=== PATIENT | male | born 1955 | race African-American/Black ===

== ENCOUNTER 2017-04-11 10:40 | Day surgery (SDC) | payer OTHER ==
[2017-04-09 12:39] VITALS: BMI 24.4
[2017-04-11] MEDS ORDERED: PROPOFOL 20 ML ONE ×2 (11:05→11:25)
[2017-04-11 12:47] VITALS: TEMP 98
[2017-04-11 13:05] VITALS: BP 119/64; PULSE 67
--- NOTE | 2017-04-12 15:29 | PATH ---
Surgical Pathology Report Patient Name: SAVANAH GARYSON [facility]. Rec. #: [id number] /Age/Gender: 1955 (Age: 61) / M Account: [id number] Location: Taken: 04/11/2017 Received: 04/11/2017 Reported: 04/12/2017 Physicians: Maria D Tejeda M.D. Specimen(s) Received TRANSVERSE COLON Clinical History Preoperative diagnosis: Anemia Postoperative diagnosis: Polyp Final Diagnosis TRANSVERSE COLON, BIOPSY: HYPERPLASTIC POLYP. Electronically Signed Cecilia Martinez M.D. Gross Description Received in formalin, labeled "transverse colon" are 2 flores, irregular portions of soft tissue measuring 0.3 and 0.5 cm. in greatest dimension. The specimens are submitted in toto in one cassette. 04/11/201704/11/2017
== END 2017-04-11 13:05 ==
LOC: FASU-ENDO 10:40
PROVIDERS: ATTEND Internal Medicine Gastroenterology
PROC: 0DBL8ZX Excision of Transverse Colon, Via Natural or Artificial Opening Endoscopic, Diagnostic (ICD-10-PCS; principal; 2017-04-11 11:54)
DX: D64.9 Anemia, unspecified (principal); K63.5 Polyp of colon; K64.1 Second degree hemorrhoids
CPT/HCPCS: 82962; 88305-TC

== ENCOUNTER 2017-12-12 12:01 | Day surgery (SDC) | payer OTHER ==
[2017-12-12 12:38] VITALS: BMI 26.2
[2017-12-12 15:36] VITALS: BP 110/65; PULSE 68; TEMP 98
== END 2017-12-12 16:19 ==
LOC: FASU-ENDO 12:01
PROVIDERS: ATTEND Internal Medicine Gastroenterology
PROC: 0DJD8ZZ Inspection of Lower Intestinal Tract, Via Natural or Artificial Opening Endoscopic (ICD-10-PCS; principal; 2017-12-12 13:39)
DX: Z86.010 Personal history of colon polyps (principal)
CPT/HCPCS: 82962